=== PATIENT | female | born 1980 | race Caucasian/White ===

== ENCOUNTER → 2016-03-08 | Outpatient (CLI) | payer OTHER ==
[~2016-03-08] MED LIST: ADDERALL XR30 MG PO; ATIVAN0.5 MG PO; CIPRO250 MG PO; Effexor25 MG PO; KEFLEX500 MG PO; MOTRIN800 MG PO; PERCOCET 325 MG1 TA2 PO; REXULTI1 MG PO; SEASONALE 30 MC1 TAB PO; VALTREX500 MG PO; VICODIN 5/500 505 MG PO; VICODIN ES 7501 TAB PO; WELLBUTRIN XL300 MG PO
--- NOTE | ~2016-03-08 | HM ---
[place], [place] HOLTER MONITOR REPORT NAME: BINANORMA UNIT #: [id number] ROOM: DOCTOR: ROSA URIOSTEGUI [facility],[place] BIRTHDATE: [birth year] DOS: 03/08/2016 FINDINGS: 1. Sinus rhythm. 2. Sinus tachycardia. 3. No extreme bradycardia. 4. No sustained or nonsustained ventricular tachycardia. 5. No conduction abnormalities noted. Holter appears to be fairly benign. OLIVIA LEE MD CM:HOLTER:HOLTER MONITOR REPORT [id number] VENUS LEE MD [facility]
== END | disposition home or self-care (01) ==
LOC: CARD 14:00
DX: I47.1 Supraventricular tachycardia (principal)

== ENCOUNTER 2018-11-21 01:53 | Emergency (ER) | payer OTHER ==
[~2018-11-21] VITALS: Ht 160 cm; Wt 59.0 kg
[2018-11-21 02:25] LABS: BILIRUBIN NEGATIVE (NEGATIVE); BLOOD 3+ (NEGATIVE); CLARITY SL CLOUDY (CLEAR); COLOR YELLOW (YELLOW); GLUCOSE NEGATIVE (NEGATIVE); KETONE NEGATIVE (NEGATIVE); LEUKO ESTERASE NEGATIVE (NEGATIVE); NITRITE NEGATIVE (NEGATIVE); PH 5.5 (5.0-9.0); SPECIFIC GRAVITY >= 1.030 (1.005-1.030); UROBILINOGEN 0.2 E.U./dl (0.2-1.0)
[2018-11-21 02:33] LABS: BACTERIA 2+; CALCIUM OXALATE CRYSTALS 1+; EPITHELIAL CELLS 21-30; RBC TNTC rbc/hpf (0-2)
[2018-11-21 02:40] LABS: BASO # 0.1 10*3/uL (0.0-0.1); BASO % 0.7 % (0.0-1.0); EOS # 0.1 10*3/uL (0.0-0.4); EOS % 0.8 % (1.0-4.0); HEMATOCRIT 39.4 % (37.0-47.0); HEMOGLOBIN 13.2 g/dl (12.0-16.0); LYMPH # 2.3 10*3/uL (1.3-4.4); LYMPH % 13.5 % (27.0-41.0); MEAN CELL VOLUME 97.8 fl (81.0-99.0); MEAN CORPUSCULAR HGB 32.8 pg (27.0-31.0); MEAN CORPUSCULAR HGB CONC 33.5 g/dl (33.0-37.0); MEAN PLATELET VOLUME 8.3 fl (9.6-12.3); MONO # 1.4 10*3/uL (0.1-1.0); MONO % 8.3 % (3.0-9.0); NEUT # 12.9 10*3/uL (2.3-7.9); NEUT % 76.3 % (47.0-73.0); PLATELET COUNT AUTOMATED 436 10*3/uL (130-400); RED BLOOD COUNT 4.03 10*6/uL (4.10-5.10); RED CELL DISTRI WIDTH 13.4 % (0-14.5); WHITE BLOOD COUNT 16.9 10*3/uL (4.8-10.8)
[2018-11-21 02:54] LABS: ALBUMIN 3.9 gm/dl (3.1-4.5); ALKALINE PHOSPHATASE 74 U/L (45-117); BUN 16 mg/dl (7-24); CHLORIDE 107 mmol/L (98-107); POTASSIUM 3.7 mmol/L (3.5-5.1); SGOT/AST 12 IU/L (3-35); SGPT/ALT 20 U/L (12-78); SODIUM 139 mmol/L (136-145); TOTAL PROTEIN 7.3 gm/dL (6.4-8.2)
[2018-11-21] MEDS ORDERED: PERCOCET 5-3251 EACH PO (04:11)
== END 2018-11-21 04:34 | disposition home or self-care (01) ==
LOC: ED 01:53
PROVIDERS: Emergency Medicine
DX: N13.2 Hydronephrosis with renal and ureteral calculous obstruction (principal); F17.200 Nicotine dependence, unspecified, uncomplicated; Z87.442 Personal history of urinary calculi; Z79.899 Other long term (current) drug therapy

== ENCOUNTER 2019-01-17 08:19 | Inpatient (IN) | payer OTHER ==
[~2019-01-17] VITALS: Ht 160 cm; Wt 60.6 kg
--- NOTE | ~2019-01-17 | EKG ---
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
--- NOTE | ~2019-01-17 | CON ---
[place], [place] REPORT OF CONSULTATION NAME: NORMA CURRAN UNIT #: [id number] ROOM: 403 DOCTOR: ROSA URIOSTEGUI [facility] BIRTHDATE: [birth year] DOS: 01/17/2019 CARDIOLOGY CONSULTATION HISTORY OF PRESENT ILLNESS: The patient is a 38-year-old female who came in with precordial chest discomfort, progressively increasing and CT angio of the chest was negative for pulmonary emboli, but troponin is elevated. No pneumonia. No other cause for the troponin elevation. The patient has a history of smoking. The patient's profile fits for non-ST elevation myocardial infarction. No critical EKG changes noted and the patient has had similar symptoms in the past. No syncope or presyncope. Smokes more than a pack a day and the patient has a history of tachycardia, supraventricular, but no extreme tachycardia and unlikely for this level of tachycardia cause significant elevation of the troponin, has progressive increasing levels and the rate is improved, it should trend down. She felt like an elephant sitting in the chest, lasted for 2 hours prior to coming to the hospital. History of anxiety, depression, hypothyroidism, panic attacks, occasionally tachyarrhythmia, and ulcerative colitis. No significant surgical history noted. The patient is on Vraylar, Adderall, levothyroxine, and Brintellix 5 mg daily. No history of heart attack in the past. No syncope. On physical examination; vital signs stable. Blood pressure is 108/78, heart rate is 94. No critical tachyarrhythmias noted and O2 sat is suboptimal. Chest x-ray was unremarkable. Smokes more than a pack a day. PHYSICAL EXAMINATION: VITAL SIGNS: Stable. GENERAL: Alert, not in any acute distress. NECK: No jugular venous distention noted. No carotid bruits were heard. LUNGS: No rales. HEART: S1, S2 regular. No gallops. ABDOMEN: Soft. SKIN: Color is good, not diaphoretic. EXTREMITIES: No cyanosis. RECTAL, GENITAL, AND BREASTS: Deferred, unrelated. IMPRESSION AND PLAN: Non-ST elevation myocardial infarction. Considered options, procedures, complications, morbidity and mortality explained. The patient will need to go to [place] to have coronary artery possible revascularization and explained to the patient and discussed with the resident and follow the patient. Thank you very much for asking me to see the patient. We will follow the patient. [place], [place] REPORT OF CONSULTATION NAME: BINAMay UNIT #: [id number] ROOM: [facility] [birth year] [place] LEE MD CM:CONSTR:REPORT OF CONSULTATION 1546 01/20/19 0535 interface
--- NOTE | ~2019-01-17 | EKG ---
[place], [place] ELECTROCARDIOGRAM REPORT NAME: NORMA CURRAN UNIT #: [id number] ROOM: 403 DOCTOR: MARY DRAFT REPORT BIRTHDATE: [birth year] [facility] Test Date: 2019-01-17 Test Time: 14:41:45 Pat Name: NORMA CURRAN Department: Room: 403 Gender: F Payment Rep: : 1980 Requested By: COTY ZARATE Order Number: [id number] Reading MD: Jack Cross MD Measurements Intervals [place] Rate: 89 P: 53 AL: 132 QRS: 52 QRSD: 83 T: 53 QT: 370 QTc: 451 Interpretive Statements Sinus rhythm No previous ECG available for comparison Electronically Signed On 01-18-2019 6:11:50 PST by Jack Cross MD CM:EKGRPT:ELECTROCARDIOGRAM REPORT [id number] COTY DUGAN DRAFT REPORT COTY ZARATE DO
--- NOTE | ~2019-01-17 | EKG ---
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
[~2019-01-17 08:19] MED LIST changes: +PERCOCET 5-3251 EACH PO
[2019-01-17 08:22] VITALS: BP 96/62
[2019-01-17 08:49] LABS: BASO # 0.1 10*3/uL (0.0-0.1); BASO % 0.5 % (0.0-1.0); EOS # 0.1 10*3/uL (0.0-0.4); EOS % 0.7 % (1.0-4.0); HEMATOCRIT 43.8 % (37.0-47.0); LYMPH # 1.9 10*3/uL (1.3-4.4); LYMPH % 11.8 % (27.0-41.0); MEAN CELL VOLUME 99.8 fl (81.0-99.0); MEAN CORPUSCULAR HGB 31.9 pg (27.0-31.0); MEAN PLATELET VOLUME 8.2 fl (9.6-12.3); MONO % 6.1 % (3.0-9.0); NEUT # 12.9 10*3/uL (2.3-7.9); NEUT % 80.5 % (47.0-73.0); PLATELET COUNT AUTOMATED 477 10*3/uL (130-400); RED BLOOD COUNT 4.39 10*6/uL (4.10-5.10); RED CELL DISTRI WIDTH 13.4 % (0-14.5); WHITE BLOOD COUNT 16.1 10*3/uL (4.8-10.8)
[2019-01-17 09:06] LABS: ALBUMIN 3.9 gm/dl (3.1-4.5); ALKALINE PHOSPHATASE 81 U/L (45-117); BUN 16 mg/dl (7-24); CHLORIDE 110 mmol/L (98-107); CREATININE 1.11 mg/dL (0.55-1.02); POTASSIUM 3.6 mmol/L (3.5-5.1); SGOT/AST 36 IU/L (3-35); SGPT/ALT 36 U/L (12-78); SODIUM 141 mmol/L (136-145); TOTAL PROTEIN 7.5 gm/dL (6.4-8.2)
[2019-01-17 09:07] LABS: TROPONIN I 0.019 ng/ml (<0.045)
[2019-01-17 09:35] LABS: LIPASE 100 U/L (73-393)
[2019-01-17 09:37] LABS: BETA-HCG, QUANT < 1.0 mIU/mL (1-3)
[2019-01-17 09:40] VITALS: BP 108/78
[2019-01-17 10:00] LABS: BILIRUBIN NEGATIVE (NEGATIVE); BLOOD TRACE-INTACT (NEGATIVE); CLARITY CLOUDY (CLEAR); COLOR YELLOW (YELLOW); GLUCOSE TRACE (NEGATIVE); KETONE NEGATIVE (NEGATIVE); LEUKO ESTERASE NEGATIVE (NEGATIVE); NITRITE NEGATIVE (NEGATIVE); UROBILINOGEN 0.2 E.U./dl (0.2-1.0)
[2019-01-17 10:29] LABS: BACTERIA 3+
[2019-01-17 11:30] VITALS: BP 115/72
--- NOTE | 2019-01-17 11:37 | NUR ---
A 38, admitted to , under the services of ISAEL Gómez DO with a diagnosis of CHEST PAIN UTI DIZZINESS SEPSI. Chief complaint is CHEST PAIN. Patient arrived via bed from ER. Monitor applied. Initial assessment completed. Vital signs taken and recorded. ISAEL GÓMEZ DO notified of admission to the unit. Orders received. See assessment for past medical history, medications and allergies. Patient and/or family oriented to unit. [facility]. Clothing/patient valuable form completed. PEYTON HERNANDEZ
--- NOTE | 2019-01-17 11:44 | NUR ---
NOTIFIED OF TROPONIN LEVEL
[2019-01-17] MEDS ORDERED: LEVOTHYROXINE50 MCG PO (11:53)
[2019-01-17] MEDS ORDERED: VRAYLAR3 MG PO (11:53)
[2019-01-17] MEDS ORDERED: BRINTELLIX PO (11:53)
--- NOTE | 2019-01-17 11:58 | NUR ---
ANSWERING SERVICE NOTIFIED OF CONSULT
--- NOTE | 2019-01-17 12:31 | NUR ---
ATTEMPT TO NOTIFIED OF TROPONIN VIA HIS PERSONAL CELL BUT NO ANSWER WILL CONTINUE TO TRY VIA ANSWERING SERVICE
--- NOTE | 2019-01-17 14:39 | NUR ---
NOTIFIED OF TROPONIN, POSSIBLE TRANSFER TO [facility] FOR A HEART CATH, SPOKE WITH AT NURSES STATION OVER THE PHONE AND PER THE TRANSFER IS ON HOLD, PATIENT TO HAVE A CTA CHEST TO R/O PE, PT AA&OX2 AT THIS TIME, VITALS ARE STABLE, PT DENIES CHEST PAIN OR DISCOMFORT. WILL CONTINUE TO MONITOR
[2019-01-17 16:00] VITALS: BP 108/64
[2019-01-17 17:00] LABS: URINE AMPHETAMINES > 1000 (1000ng/ml); URINE BARBITURATES < 200 (200ng/ml); URINE BENZODIAZEPINES > 200 (200ng/ml); URINE CANNABINOIDS (THC) < 50 (50ng/ml); URINE COCAINE < 300 (300ng/ml); URINE METHADONE < 300 (300ng/ml); URINE OPIATES < 300 (300ng/ml); URINE PHENCYCLIDINE < 25 (25ng/ml)
--- NOTE | 2019-01-17 19:44 | NUR ---
PT STATES THAT SHE HAS A HEAD ACHE AND IS REQUESTING PRN TYLENOL. SHE RATES HER HEADACEH A 4/10. PRN TYLENOL PO IS GIVEN AT THIS TIME.
[2019-01-17 20:00] VITALS: BP 103/53
--- NOTE | 2019-01-17 20:04 | NUR ---
DR PARKS NOTIFIED OF CRITICAL LAB VALUE. PT ALSO REQUESTING SOMETHING TO HELP HER SLEEP AT NIGHT. ADDED ORDER PER DR PARKS.
--- NOTE | 2019-01-17 20:13 | NUR ---
PT RE-EVALUATED AT THIS TIME AND PT IS SLEEPING. WILL CONTINUE TO MONITOR THE PATIENT. CALL LIGHT WITHIN REACH
--- NOTE | 2019-01-17 21:06 | NUR ---
PT REQUESTING SOMETHING TO HELP HER SLEEP. PRN RESTORIL PO IS GIVEN AT THIS TIME. WILL CONTINUE TO MONITOR THE PATIENT. CALL LIGHT WITHIN REACH
--- NOTE | 2019-01-17 21:38 | NUR ---
PT RE-EVALUATED AT THIS TIME AND PATIENT IS SLEEPING. WILL CONTINUE TO MONITOR THE PATIENT.
[2019-01-18] VITALS: BP 107/61
--- NOTE | 2019-01-18 02:24 | NUR ---
24 HR chart check completed.
--- NOTE | 2019-01-18 03:59 | NUR ---
Patient sleeping. Respirations relaxed and easy. [place] on, call light within reach [place]
--- NOTE | 2019-01-18 06:21 | NUR ---
SPOKE TO CARDIAC LAB AT [place] AND PER DR LEE HE WANTS THE HEPARIN AT 0800 AND OK TO HAVE BABY ASPIRIN.
--- NOTE | 2019-01-18 06:32 | NUR ---
PT STATES THAT SHE HAS A HEAD ACHE RATING IT A 8/10 AND IS REQUESTING SOMETHING FOR IT. PRN TYLENOL PO IS GIVEN AT THIS TIME.
[2019-01-18 06:36] LABS: BASO # 0.1 10*3/uL (0.0-0.1); BASO % 0.6 % (0.0-1.0); EOS # 0.2 10*3/uL (0.0-0.4); EOS % 1.4 % (1.0-4.0); HEMATOCRIT 35.7 % (37.0-47.0); HEMOGLOBIN 11.6 g/dl (12.0-16.0); LYMPH # 3.7 10*3/uL (1.3-4.4); LYMPH % 22.3 % (27.0-41.0); MEAN CELL VOLUME 99.4 fl (81.0-99.0); MEAN CORPUSCULAR HGB 32.3 pg (27.0-31.0); MEAN CORPUSCULAR HGB CONC 32.5 g/dl (33.0-37.0); MEAN PLATELET VOLUME 8.4 fl (9.6-12.3); MONO # 1.2 10*3/uL (0.1-1.0); MONO % 7.2 % (3.0-9.0); NEUT # 11.2 10*3/uL (2.3-7.9); NEUT % 68.2 % (47.0-73.0); PLATELET COUNT AUTOMATED 423 10*3/uL (130-400); RED BLOOD COUNT 3.59 10*6/uL (4.10-5.10); RED CELL DISTRI WIDTH 13.6 % (0-14.5); WHITE BLOOD COUNT 16.4 10*3/uL (4.8-10.8)
[2019-01-18 06:57] LABS: ALBUMIN 3.1 gm/dl (3.1-4.5); BUN 9 mg/dl (7-24); CHLORIDE 112 mmol/L (98-107); CHOLESTEROL 130 mg/dL (<200); PHOSPHOROUS 1.9 mg/dL (2.5-4.9); POTASSIUM 3.9 mmol/L (3.5-5.1); SGOT/AST 16 IU/L (3-35); SGPT/ALT 25 U/L (12-78); SODIUM 141 mmol/L (136-145); TRIGLYCERIDES 81 mg/dl (<150); VLDL CHOLESTEROL 16 mg/dL (6-40)
[2019-01-18 07:04] LABS: ALKALINE PHOSPHATASE 64 U/L (45-117); HDL CHOLESTEROL 53 mg/dl (40-60); LDL CHOLESTEROL 61 mg/dL (9-159); TOTAL PROTEIN 5.9 gm/dL (6.4-8.2)
--- NOTE | 2019-01-18 09:00 | NUR ---
Lithographic Press Operator Apprentice in to talk to patient. Patient states lives at home with family. There are few steps in the home. Physician: neymar butler Pharmacy: [facility] health services: none Patient's level of ADLs: INDEPENDENT Patient has working utilities: all working DME: none Follow-up physician's appointment after d/c: will be made by hospitalist nurse director upon discharge Does patient want to access PORTAL?: no Discharge plan discussed with patient, she lives at home, is independent in adls and ambulation works at [employer] and drives, patient has a Dr Lopes consult, increasing troponins and an echo ordered, patient is a possibly transfer to [facility] for higher level of care, case management will follow. MAZIN GOLDSTEIN
--- NOTE | 2019-01-18 09:41 | NUR ---
Discharge instructions reviewed with patient/family. Patient receptive and verbalizes understanding. Follow-up care arranged. Written instructions given to patient/family. PEYTON HERNANDEZ
== END 2019-01-18 10:00 | disposition other institution (70) | DRG 871 ==
LOC: ED 08:19 → EDHOLD 10:42 → 4E 10:42
PROVIDERS: Emergency Medicine; Family Medicine; Nurse Practitioner Family; ADMIT Internal Medicine
DX: A41.9 Sepsis, unspecified organism (principal); N17.0 Acute kidney failure with tubular necrosis; I21.4 Non-ST elevation (NSTEMI) myocardial infarction; I47.1 Supraventricular tachycardia; E87.2 Acidosis; N30.01 Acute cystitis with hematuria; F41.0 Panic disorder [episodic paroxysmal anxiety]; E03.9 Hypothyroidism, unspecified; F32.9 Major depressive disorder, single episode, unspecified; R65.20 Severe sepsis without septic shock; F17.210 Nicotine dependence, cigarettes, uncomplicated; D70.9 Neutropenia, unspecified; E87.8 Other disorders of electrolyte and fluid balance, not elsewhere classified; R73.9 Hyperglycemia, unspecified; R74.0 Nonspecific elevation of levels of transaminase and lactic acid dehydrogenase [LDH]; Z87.442 Personal history of urinary calculi; Z84.89 Family history of other specified conditions; Z79.899 Other long term (current) drug therapy

== ENCOUNTER → 2019-06-26 | Outpatient (CLI) | payer OTHER ==
[~2019-06-26] MED LIST changes: +BRINTELLIX PO; +LEVOTHYROXINE50 MCG PO; +VRAYLAR3 MG PO
== END | disposition home or self-care (01) ==
LOC: US 05-03 10:30
DX: N83.202 Unspecified ovarian cyst, left side (principal)

== ENCOUNTER → 2020-02-22 | Outpatient (CLI) | payer OTHER | END | disposition home or self-care (01) | LOC: CT 16:00 | PROVIDERS: ATTEND Nurse Practitioner Family | DX: M54.9 Dorsalgia, unspecified (principal); R11.0 Nausea; R30.0 Dysuria; F17.210 Nicotine dependence, cigarettes, uncomplicated ==

== ENCOUNTER → 2020-02-29 | Outpatient (CLI) | payer OTHER ==
[~2020-02-29] MED LIST changes: +TOPROL XL50 M1 PO
== END | disposition home or self-care (01) ==
LOC: CT 02-28 08:00
PROVIDERS: ATTEND Nurse Practitioner Family
DX: R30.0 Dysuria (principal); R11.0 Nausea

== ENCOUNTER 2020-06-10 13:21 | Emergency (ER) | payer OTHER ==
[~2020-06-10 13:21] MED LIST changes: -TOPROL XL50 M1 PO
[2020-06-10 13:42] LABS: BASO # 0.1 10*3/uL (0.0-0.1); EOS # 0.3 10*3/uL (0.0-0.4); EOS % 2.4 % (1.0-4.0); HEMATOCRIT 40.9 % (37.0-47.0); LYMPH # 2.9 10*3/uL (1.3-4.4); LYMPH % 25.4 % (27.0-41.0); MEAN CORPUSCULAR HGB CONC 32.3 g/dl (33.0-37.0); MEAN PLATELET VOLUME 7.8 fl (9.6-12.3); MONO # 0.9 10*3/uL (0.1-1.0); MONO % 7.9 % (3.0-9.0); NEUT # 7.2 10*3/uL (2.3-7.9); PLATELET COUNT AUTOMATED 444 10*3/uL (130-400); RED BLOOD COUNT 4.26 10*6/uL (4.10-5.10); RED CELL DISTRI WIDTH 13.5 % (0-14.5); WHITE BLOOD COUNT 11.5 10*3/uL (4.8-10.8)
[2020-06-10 13:51] LABS: ACT PARTIAL THROMBO TIME 26.1 SECONDS (20.0-32.1); INTERNATIONAL NORM RATIO 1.1 (2.0-3.5)
[2020-06-10 13:57] LABS: ALBUMIN 3.7 gm/dl (3.1-4.5); ALKALINE PHOSPHATASE 120 U/L (45-117); BUN 15 mg/dl (7-24); CHLORIDE 107 mmol/L (98-107); CREATININE 0.93 mg/dL (0.55-1.02); LIPASE 82 U/L (73-393); POTASSIUM 3.8 mmol/L (3.5-5.1); SGOT/AST 69 IU/L (3-35); SGPT/ALT 59 U/L (12-78); SODIUM 139 mmol/L (136-145)
[2020-06-10 13:58] LABS: FREE T4 1.07 ng/dl (0.76-1.46)
[2020-06-10 13:59] LABS: BETA-HCG, QUANT < 1.0 mIU/mL (1-3); TROPONIN I < 0.015 ng/ml (<0.045)
[2020-06-10 14:02] LABS: THYROID STIM HORMONE (HS) 2.24 uIU/ml (0.358-4.75)
[2020-06-10] MEDS ORDERED: TOPROL XL50 M1 PO (15:23)
== END 2020-06-10 15:24 | disposition home or self-care (01) ==
LOC: ED 13:21
PROVIDERS: Emergency Medicine
DX: I47.1 Supraventricular tachycardia (principal); Z79.899 Other long term (current) drug therapy

== ENCOUNTER 2021-02-10 02:16 | Emergency (ER) | payer BC ==
[~2021-02-10] VITALS: Ht 160 cm; Wt 59.0 kg
[~2021-02-10 02:16] MED LIST changes: +TOPROL XL50 M1 PO
== END 2021-02-10 02:46 | disposition home or self-care (01) ==
LOC: ED 02:16
DX: K12.0 Recurrent oral aphthae (principal)

== ENCOUNTER → 2021-02-18 | Outpatient (CLI) | payer BC | END | disposition home or self-care (01) | LOC: RAD 19:55 | PROVIDERS: ATTEND Nurse Practitioner Family | DX: R00.0 Tachycardia, unspecified (principal); K12.1 Other forms of stomatitis; B37.0 Candidal stomatitis; Z86.16 Personal history of COVID-19 ==

== ENCOUNTER 2021-05-25 04:54 | Emergency (ER) | payer BC ==
[~2021-05-25] VITALS: Ht 165.1 cm; Wt 68.0 kg
[2021-05-25] MEDS ORDERED: SEPTDS PO (05:15)
== END 2021-05-25 05:26 | disposition home or self-care (01) ==
LOC: ED 04:54
DX: L30.8 Other specified dermatitis (principal); Z79.899 Other long term (current) drug therapy; Z87.891 Personal history of nicotine dependence

== ENCOUNTER → 2022-04-08 | Outpatient (CLI) | payer OTHER ==
[~2022-04-08] MED LIST changes: +SEPTDS PO
== END | disposition home or self-care (01) ==
LOC: RAD 08:47
PROVIDERS: ATTEND Nurse Practitioner Family
DX: R00.0 Tachycardia, unspecified (principal); Z98.890 Other specified postprocedural states

== ENCOUNTER → 2022-04-15 | Outpatient (CLI) | payer OTHER | END | disposition home or self-care (01) | LOC: RAD 11:31 | PROVIDERS: ATTEND Nurse Practitioner Family | DX: Z12.4 Encounter for screening for malignant neoplasm of cervix (principal); R30.0 Dysuria; R31.9 Hematuria, unspecified ==